=== PATIENT | male | born 1970 | race African-American/Black ===

== ENCOUNTER 2017-11-30 20:08 | Emergency (ER) | payer OTHER ==
[~2017-11-30] VITALS: Ht 188 cm; Wt 90.7 kg
[2017-11-30] MEDS ORDERED: KETOROLAC TROMETHAMINE 30 MG/ML VIAL IM STA (20:31)
--- NOTE | 2017-11-30 21:48 | Diagnostic Imaging Report ---
SHOULDER 2+VW RT - HOPD HISTORY: Right shoulder pain. COMPARISON: None FINDINGS: Bones: No displaced fracture. Osseous alignment is within normal limits. Joints: The joint spaces are well-maintained. Soft tissues: The soft tissues appear unremarkable. IMPRESSION: No acute radiographic abnormality. Signed by: Dr. Chuck Ruiz M.D. on 11/30/2017 9:45 PM
--- NOTE | 2017-11-30 21:49 | Diagnostic Imaging Report ---
EXAMINATION: CXR 2 VIEW - HOPD INDICATION: Shoulder pain for 2 days COMPARISON: None FINDINGS: TUBES and LINES: None. LUNGS: Lungs are well inflated. Lungs are clear. There is no evidence of pneumonia or pulmonary edema. PLEURA: No pleural effusion or pneumothorax. HEART AND MEDIASTINUM: The cardiomediastinal silhouette is unremarkable. BONES AND SOFT TISSUES: No acute osseous lesion. Soft tissues are unremarkable. UPPER ABDOMEN: No free air under the diaphragm. IMPRESSION: No acute thoracic abnormality. Signed by: Dr. Chuck Ruiz M.D. on 11/30/2017 9:45 PM
[2017-11-30] MEDS ORDERED: TRAMADOL HCL E100 MG PO (22:00)
== END 2017-11-30 22:15 | disposition home or self-care (01) ==
LOC: FSED 20:08
DX: M25.511 Pain in right shoulder (principal); M75.101 Unspecified rotator cuff tear or rupture of right shoulder, not specified as traumatic; M10.9 Gout, unspecified
CPT/HCPCS: 71046; 73030; 99283; J1885